=== PATIENT | male | born 1935 | race Caucasian/White ===

== ENCOUNTER 2016-09-24 12:52 | Inpatient (IN) | payer MEDICARE ==
[~2016-09-24] VITALS: Ht 182.9 cm; Wt 64.2 kg
[2016-09-24] MEDS ORDERED: IV NORMAL SALINE 1,000ML 1,000 ML IV SCH (13:25)
[2016-09-24] MEDS ORDERED: ASPIRIN 81 MG TAB.CHEW PO ONE (13:30)
[2016-09-24] MEDS ORDERED: 0.9 % SODIUM CHLORIDE 10 ML DISP.SYRIN. IV PRN (13:30)
--- NOTE | 2016-09-24 13:38 | EKG ---
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
--- NOTE | 2016-09-24 13:38 | PHYS DOC ---
Past History Past Medical History: CAD, Dementia, Depression, High Cholesterol, Heart Disease, Hypertension Past Surgical History: Coronary Bypass Surgery Adult General Chief Complaint Chief Complaint: SHORTNESS OF BREATH HPI HPI Patient is a pleasant 81-year-old male who used to live in [facility] in the area with his and moved to years ago to open, to be closer to a daughter. They came back to the area to spend time with family and on the last several days this patient has gotten increasingly fatigued, short of breath with exertion with extreme tiredness. Patient has a history of heart disease, with prior bypass surgery, prior spontaneous pneumothorax, hypertension, hyperglycemia, diabetes on oral metformin, and dementia. The would been managing his medications took him off his metformin 2 weeks ago because of this unrelenting diarrhea that he began to have. Patient did have some abdominal discomfort with this diarrhea several days ago but now ceased. Patient denies any nausea, vomiting, diarrhea at this point. He denies any fevers, chills, URI symptoms. He does notice extreme fatigue and has noticed decreased exercise tolerance with increased shortness of breath with exertion. He denies nocturia, he denies any trauma recently. The does state that with his weakness is generalized he has fallen a few times in the last several weeks last being several weeks ago. Denies any joint pain, back pain or other focal neurologic deficits. at the bedside denies any arthritic, vision changes or new acute changes in mental status. He became very concerned when he slept 20 hours after returning home from this trip from [place]. During their trip they did stay overnight at a hotel facility at the [address] Dr. Mullen Prior [employer] Dr. Partida prior PCP Review of Systems Review of Systems Constitutional: Denies fever or chills [] Eyes: Denies change in visual acuity, redness, or eye pain [] HENT: Denies nasal congestion or sore throat [] Respiratory: He has had some shortness of breath with exertion without cough. Cardiovascular: No additional information not addressed in HPI [] GI: She last week did complain of some abdominal pain without nausea vomiting but did have some diarrhea this is associated with metformin. : Denies dysuria or hematuria [] Musculoskeletal: Denies back pain or joint pain [] Integument: Denies rash or skin lesions [] Neurologic: Denies headache, she generally feels weak with no sensory changes or noted dysarthria. Endocrine: Denies polyuria or polydipsia [] Current Medications Current Medications Current Medications Medications (Trade) Dose Ordered Sig/Adrianne Start Time Stop Time Status Last Admin Dose Admin Aspirin (Children'S Aspirin) 324 mg 1X ONCE 09/24/16 13:30 09/24/16 13:31 UNV Sodium Chloride (Normal Saline Flush) 10 ml QSHIFT PRN 09/24/16 13:30 UNV Physical Exam Physical Exam Vital signs 179/80 hypertensive blood pressure saturation is 97% on room air normal respiratory rate pulse of 81. Constitutional: Well developed, well nourished, no acute distress, non-toxic appearance. [] HENT: Normocephalic, atraumatic, bilateral external ears normal, mucous membranes are dry no oral exudates, nose normal. [] Eyes: PERRLA, EOMI, conjunctiva normal, no discharge. [] Neck: Normal range of motion, no tenderness, supple, no stridor. No bruits Cardiovascular:Heart rate regular rhythm, no murmur [] Lungs & Thorax: Bilateral breath sounds clear to auscultation [] Abdomen: Bowel sounds normal, soft, no tenderness, no masses, no pulsatile masses. [] Skin: Warm, dry, no erythema, no rash. [] Back: No tenderness, no CVA tenderness. [] Extremities: No tenderness, no cyanosis, no clubbing, ROM intact, no edema. [] Neurologic: Alert and oriented X 3, normal motor function, normal sensory function, no focal deficits noted. [] Psychologic: Affect normal, judgement normal, mood normal. [] Current Patient Data Lab Results Laboratory Tests Test 09/24/16 13:30 09/24/16 14:10 White Blood Count 2.9 x10^3/uL (4.0-11.0) L Red Blood Count 4.43 x10^6/uL (4.30-5.70) Hemoglobin 13.2 g/dL (13.0-17.5) Hematocrit 38.9 % (39.0-53.0) L Mean Corpuscular Volume 88 fL (79-100) Mean Corpuscular Hemoglobin 30 pg (25-35) Mean Corpuscular Hemoglobin Concent 34 g/dL (31-37) Red Cell Distribution Width 15.0 % (11.5-14.5) H Platelet Count 66 x10^3/uL (140-400) L Neutrophils (%) (Auto) 75 % (31-73) H Lymphocytes (%) (Auto) 15 % (24-48) L Monocytes (%) (Auto) 9 % (0-9) Eosinophils (%) (Auto) 1 % (0-3) Basophils (%) (Auto) 0 % (0-3) Neutrophils # (Auto) 2.2 x10^3uL (1.8-7.7) Lymphocytes # (Auto) 0.4 x10^3/uL (1.0-4.8) L Monocytes # (Auto) 0.3 x10^3/uL (0.0-1.1) Eosinophils # (Auto) 0.0 x10^3/uL (0.0-0.7) Basophils # (Auto) 0.0 x10^3/uL (0.0-0.2) Sodium Level 135 mmol/L (136-145) L Potassium Level 4.0 mmol/L (3.5-5.1) Chloride Level 98 mmol/L (98-107) Carbon Dioxide Level 29 mmol/L (21-32) Anion Gap 8 (6-14) Blood Urea Nitrogen 15 mg/dL (8-26) Creatinine 1.3 mg/dL (0.7-1.3) Estimated GFR (Cockcroft-Gault) 53.1 BUN/Creatinine Ratio 12 (6-20) Glucose Level 402 mg/dL (70-99) H Calcium Level 8.8 mg/dL (8.5-10.1) Magnesium Level 1.7 mg/dL (1.8-2.4) L Total Bilirubin 0.7 mg/dL (0.2-1.0) Aspartate Amino Transferase (AST) 18 U/L (15-37) Alanine Aminotransferase (ALT) 22 U/L (16-63) Alkaline Phosphatase 86 U/L (46-116) Creatine Kinase 51 U/L (39-308) Creatine Kinase MB (Mass) 1.6 ng/mL (0.0-3.6) Creatine Kinase MB Relative Index 3.1 % (0-4) Troponin I Quantitative < 0.017 ng/mL (0-0.055) IM-Mkb-K-Type Natriuretic Peptide 825 pg/mL (0-449) H Total Protein 6.9 g/dL (6.4-8.2) Albumin 3.4 g/dL (3.4-5.0) Albumin/Globulin Ratio 1.0 (1.0-1.7) Lipase 206 U/L (73-393) Urine Collection Type Unknown Urine Color Yellow Urine Clarity Clear Urine pH 6.0 Urine Specific [place] 1.015 Urine Protein Trace (NEG-TRACE) Urine Glucose (UA) >=1000 mg/dL (NEG) Urine Ketones (Stick) Trace mg/dL (NEG) Urine Blood Neg (NEG) Urine Nitrite Neg (NEG) Urine Bilirubin Neg (NEG) Urine Urobilinogen Dipstick 0.2 mg/dL (0.2 mg/dL) Urine Leukocyte Esterase Neg (NEG) Urine RBC 1-2 /HPF (0-2) Urine WBC 0 /HPF (0-4) Urine Squamous Epithelial Cells Occ /LPF Urine Bacteria 0 /HPF (0-FEW) Urine Mucus Slight /LPF EKG EKG [] EKG timed 1:17 PM 09/24/[address] Orellana over the EKG normal sinus rhythm with a heart rate of 64 his PMD QRS P waves are 112 [place] interval is 168 QRS is 108 QTC is 452 which is within normal limits patient is a Q-wave in the anterior septal leads V1. Patient has coarse systolic depressions in the lateral leads but nothing greater than 1 mm. Radiology/Procedures Radiology/Procedures [] [place] [address] IMAGING REPORT Signed PATIENT: KATARZYNA JOHNSON ACCOUNT: [id number] : 1935 LOCATION: ER AGE: 81 SEX: M EXAM STATUS: PRE ER ORD. PHYSICIAN: MADELIN ORELLANA MD REASON: sob PROCEDURE: PORTABLE CHEST 1V Portable chest, 09/24/2016: History: Shortness of breath and fatigue Comparison is made to a study from 10/27/2011. There as been a previous median sternotomy. Surgical clips overlie the left upper chest. There is unchanged volume loss on the left. Unchanged left apical pleural-parenchymal opacities are compatible with scarring. The heart size is normal. There is calcific plaquing of the aorta. The pulmonary vascularity is normal. No pulmonary consolidation is seen. There is no evidence of pleural fluid. IMPRESSION: 1. Postsurgical change on the left with volume loss and pleural-parenchymal scarring. 2. No acute pulmonary abnormality is detected. DICTATED AND SIGNED BY: LEANNA PETERSON MD DATE: 09/24/16 0681 CC: KAVITHA OWEN; MADELIN ORELLANA MD ~ [address] [address] IMAGING REPORT Signed PATIENT: KATARZYNA JOHNSON ACCOUNT: [id number] : 1935 LOCATION: ER AGE: 81 SEX: M EXAM STATUS: REG ER ORD. PHYSICIAN: MADELIN ORELLANA MD REASON: sob with travel >8 hrs PROCEDURE: CT ANGIOGRAPHY CHEST CT angiography chest with contrast 09/24/2016 Indication: Shortness of breath with recent travel area of Comparison: CT abdomen/pelvis 08/09/2007 Technique: Multiple axial CT images of the chest were obtained after intravenous administration of 60 mL Omnipaque 300. Coronal and sagittal reformats are provided. Maximum intensity projection images are provided. Findings: Thyroid gland is normal in appearance. There are no enlarged axillary, mediastinal or hilar lymph nodes. Heart size is within normal limits. No pericardial effusion. The thoracic aorta is normal in course and caliber with scattered atherosclerotic calcification. Coronary stents are present. Median sternotomy changes are noted. There is adequate opacification of the pulmonary arterial system. No filling defects to suggest pulmonary artery embolism. There is biapical pleural-parenchymal scarring, left greater than right with volume loss noted in the left lung. Mild centrilobular emphysematous changes are present. Mild bronchial wall thickening compatible with bronchitis. There is a spiculated mass measuring 14 x 11 mm in the lateral basal segment of the right lower lobe. Cholecystectomy changes are identified in the right upper quadrant. Splenic vascular calcification is noted. There is a cystic lesion within the tail of the pancreas measuring 21 x 9 mm. There is mild prominence of the main pancreatic duct measuring 5 mm. No suspicious osseous lesions are identified. Impression: 1. There is a 14 x 11 mm spiculated mass in the lateral basal segment of the right lower lobe suspicious for primary malignancy. Further evaluation with tissue sampling or PET CT may be of benefit. No pathologically enlarged axillary, mediastinal or hilar lymph nodes are identified. 2. Volume loss involving the left upper lobe with left apical pleural-parenchymal scarring. 3. Mild centrilobular emphysema and bronchitis compatible with COPD changes. 4. No acute pulmonary embolism. PQRS Compliance Statement: One or more of the following individualized dose reduction techniques were utilized for this examination: 1. Automated exposure control 2. Adjustment of the mA and/or kV according to patient size 3. Use of iterative reconstruction technique DICTATED AND SIGNED BY: REBECCA BRADY MD DATE: 09/24/16 6260 CC: KAVITHA OWEN; MADELIN ORELLANA MD ~ Course & Med Decision Making Course & Med Decision Making Pertinent Labs and Imaging studies reviewed. (See chart for details) Differential diagnosis: Acute myocardial ischemia, heart failure, cardiac tamponade, bronchospasm, pulmonary embolism, pneumothorax, pulmonary infection i.e. bronchitis or pneumonia, upper airway obstruction, anaphylaxis, aspiration , psychogenic, pulmonary contusion, toxidrome, pneumomediastinum, noncardiogenic pulmonary edema or ARDS, COPD, tuberculosis, cystic fibrosis, asthma, high altitude pulmonary edema, valvular dysfunction, cardiac dysrhythmia , stroke, neuromuscular diseases like myasthenia gravis gravis, ALS, Guillain- Romeo syndrome, metabolic acidosis to include diabetic ketoacidosis, sepsis, and obstructive disorders like massive obesity [] I have reviewed this patient's nursing notes, vital signs and history and physical. Patient noted to be mildly leukopenic with left shift and mild thrombocytopenia. Patient also noted to be mild dehydration with elevated BUN/ creatinine. Patient also noted to have an elevated proBNP but on chest x-ray and exam no clear evidence of congestive heart failure. This patient presents with fatigue and shortness breath with exertion but no chest pain he describes no weight loss, no night sweats. But family is concerned with increasing dementia and this seemed fatigued. Patient tells me that their symptoms given during CC are improved. We reviewed labs and radiology reports with a chest x-ray that shows no occult findings time is now 2 PM. Patient tells me that their symptoms given during CC are improved. We reviewed labs and radiology reports with patient and any family at bedside. Time is now 3 :25 PM patient demonstrates no sign of heart damage at this time, his CT angios the chest demonstrates no pulmonary most him but it does demonstrate a significant mass in the right lower lung that given its size and location is concerning for primary lung cancer. Patient at approximately 3:10 PM had a short run of what we interpreted to look like V. tach unfortunately we are not able to catch it on EKG. Procedures Tech note: call center support representative physician Dr. MOTA Procedures Tech called at of the service 3:24 PM Consult called back at 3:24 PM Discussed the case I presented and they agreed with admission. Time of acceptance 3:24 PM he and I did discuss the involvement of oncology but family would prefer to stay here to have this workup completed and then referred to oncology down at [place]. Servando Disclaimer Dragon Disclaimer This chart was dictated in whole or in part using Voice Recognition software in a busy, high-work load, and often noisy Emergency Department environment. It may contain unintended and wholly unrecognized errors or omissions. Departure Departure: Impression: Primary Impression: Dyspnea on exertion Additional Impressions: Mass of lung Abnormal EKG Fatigue Dehydration Thrombocytopenia Disposition: 09 ADMITTED INPATIENT Admitting Physician: Eddy Mota Condition: GUARDED Referrals: KAVITHA OWEN (PCP) Problem Qualifiers MADELIN ORELLANA MD Sep 24, 2016 13:38
[2016-09-24 13:46] LABS: BASO % 0 % (0-3); EOS % 1 % (0-3); HEMATOCRIT 38.9 % (39.0-53.0); HEMOGLOBIN 13.2 g/dL (13.0-17.5); LYMPH # 0.4 x10^3/uL (1.0-4.8); LYMPH % 15 % (24-48); MEAN CORPUSCULAR HEMOGLOBIN 30 pg (25-35); MEAN CORPUSCULAR HGB CONC 34 g/dL (31-37); MEAN CORPUSCULAR VOLUME 88 fL (79-100); MONO # 0.3 x10^3/uL (0.0-1.1); MONO % 9 % (0-9); NEUT # 2.2 x10^3uL (1.8-7.7); NEUT % 75 % (31-73); PLATELET COUNT 66 x10^3/uL (140-400); RED BLOOD COUNT 4.43 x10^6/uL (4.30-5.70); WHITE BLOOD COUNT 2.9 x10^3/uL (4.0-11.0)
[2016-09-24 14:08] LABS: ALBUMIN 3.4 g/dL (3.4-5.0); CALCIUM 8.8 mg/dL (8.5-10.1); CREATININE 1.3 mg/dL (0.7-1.3); GFR 53.1; MAGNESIUM 1.7 mg/dL (1.8-2.4); TOTAL BILIRUBIN 0.7 mg/dL (0.2-1.0); TOTAL PROTEIN 6.9 g/dL (6.4-8.2)
--- NOTE | 2016-09-24 14:19 | RAD ---
Portable chest, 09/24/2016: History: Shortness of breath and fatigue Comparison is made to a study from 10/27/2011. There as been a previous median sternotomy. Surgical clips overlie the left upper chest. There is unchanged volume loss on the left. Unchanged left apical pleural-parenchymal opacities are compatible with scarring. The heart size is normal. There is calcific plaquing of the aorta. The pulmonary vascularity is normal. No pulmonary consolidation is seen. There is no evidence of pleural fluid. IMPRESSION: 1. Postsurgical change on the left with volume loss and pleural-parenchymal scarring. 2. No acute pulmonary abnormality is detected.
[2016-09-24] MEDS ORDERED: IOHEXOL 300 MG/ML 75 ML VIAL. IV ONE (14:30)
[2016-09-24 14:35] LABS: CLARITY,URINE CLEAR; COLOR,URINE YELLOW
[2016-09-24 14:36] LABS: BACTERIA,URINE 0 /HPF (0-FEW); BILIRUBIN,URINE NEG (NEG); GLUCOSE,URINE >=1000 mg/dL (NEG); NITRITE,URINE NEG (NEG); SQUAMOUS EPITHELIAL CELL,UR OCC /LPF; UROBILINOGEN,URINE 0.2 mg/dL (0.2 mg/dL); WBC,URINE 0 /HPF (0-4)
--- NOTE | 2016-09-24 15:07 | RAD ---
CT angiography chest with contrast 09/24/2016 Indication: Shortness of breath with recent travel area of Comparison: CT abdomen/pelvis 08/09/2007 Technique: Multiple axial CT images of the chest were obtained after intravenous administration of 60 mL Omnipaque 300. Coronal and sagittal reformats are provided. Maximum intensity projection images are provided. Findings: Thyroid gland is normal in appearance. There are no enlarged axillary, mediastinal or hilar lymph nodes. Heart size is within normal limits. No pericardial effusion. The thoracic aorta is normal in course and caliber with scattered atherosclerotic calcification. Coronary stents are present. Median sternotomy changes are noted. There is adequate opacification of the pulmonary arterial system. No filling defects to suggest pulmonary artery embolism. There is biapical pleural-parenchymal scarring, left greater than right with volume loss noted in the left lung. Mild centrilobular emphysematous changes are present. Mild bronchial wall thickening compatible with bronchitis. There is a spiculated mass measuring 14 x 11 mm in the lateral basal segment of the right lower lobe. Cholecystectomy changes are identified in the right upper quadrant. Splenic vascular calcification is noted. There is a cystic lesion within the tail of the pancreas measuring 21 x 9 mm. There is mild prominence of the main pancreatic duct measuring 5 mm. No suspicious osseous lesions are identified. Impression: 1. There is a 14 x 11 mm spiculated mass in the lateral basal segment of the right lower lobe suspicious for primary malignancy. Further evaluation with tissue sampling or PET CT may be of benefit. No pathologically enlarged axillary, mediastinal or hilar lymph nodes are identified. 2. Volume loss involving the left upper lobe with left apical pleural-parenchymal scarring. 3. Mild centrilobular emphysema and bronchitis compatible with COPD changes. 4. No acute pulmonary embolism. PQRS Compliance Statement: One or more of the following individualized dose reduction techniques were utilized for this examination: 1. Automated exposure control 2. Adjustment of the mA and/or kV according to patient size 3. Use of iterative reconstruction technique
[2016-09-24] MEDS ORDERED: ONDANSETRON PF 4 MG/2 ML VIAL. IV PRN ×2 (15:30→18:00)
[2016-09-24] MEDS ORDERED: NITROGLYCERIN SUBLINGUAL 0.4 MG BOTTLE OF 25. SL PRN (15:30)
[2016-09-24] MEDS ORDERED: ACETAMINOPHEN 325 MG TABLET PO PRN ×2 (15:30→18:00)
--- NOTE | 2016-09-24 15:43 | EKG ---
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
[2016-09-24] MEDS: IV NORMAL SALINE 1,000ML 1,000 ML IV SCH (15:45)
[2016-09-24 17:03] VITALS: BP 215/85
[2016-09-24] MEDS ORDERED: CARB-110 PO (17:52)
[2016-09-24] MEDS ORDERED: CLOP75TA57 PO (17:53)
[2016-09-24] MEDS ORDERED: CRESTOR20 MG PO (17:54)
[2016-09-24] MEDS ORDERED: AMLO2.5T PO (17:54)
[2016-09-24] MEDS ORDERED: LISI-334 PO (17:55)
[2016-09-24] MEDS ORDERED: DONE10TA7 PO (17:55)
[2016-09-24] MEDS ORDERED: UBID100C26 PO (17:57)
[2016-09-24] MEDS ORDERED: METO25TA4 PO (17:57)
[2016-09-24] MEDS ORDERED: FERR-26 PO (17:57)
[2016-09-24] MEDS ORDERED: ALPR0.5T PO ×2 (17:57→18:45)
[2016-09-24] MEDS ORDERED: CITA20TA9 PO (17:57)
[2016-09-24] MEDS ORDERED: MAGNESIUM SULFATE 2GM 50 ML IV ONE (18:00)
[2016-09-24 18:06] VITALS: BP 179/78
[2016-09-24] MEDS ORDERED: ALPRAZolam 0.5 MG TABLET PO PRN (18:15)
[2016-09-24] MEDS: LISINOPRIL 20 MG TABLET PO SCH (18:23)
[2016-09-24] MEDS: amLODIPine BESYLATE 2.5 MG TABLET PO SCH (18:24)
[2016-09-24] MEDS ORDERED: DEXTROSE 50% 25 GM / 50ML DISP.SYRIN. IV PRN (18:30)
[2016-09-24] MEDS ORDERED: METF-551 PO (18:31)
[2016-09-24] MEDS: CARBIDOPA/LEVODOPA 25/250MG TABLET PO SCH (18:40)
[2016-09-24] MEDS: METOPROLOL TART IMMED RELEASE 25 MG TABLET PO SCH (20:38)
[2016-09-24] MEDS: ALPRAZolam 0.5 MG TABLET PO SCH (20:38)
[2016-09-24] MEDS: INSULIN ASPART 300 UNITS/3 ML INSULN.PEN SQ SCH (20:44)
[2016-09-24] MEDS ORDERED: ATORVASTATIN CALCIUM 20 MG TABLET PO SCH (21:00)
[2016-09-24] MEDS ORDERED: CITALOPRAM 20 MG TABLET. PO SCH (21:00)
[2016-09-24 22:12] VITALS: BP 163/71
[2016-09-24 23:11] VITALS: BP 146/63
[2016-09-25] MEDS: IV NORMAL SALINE 1,000ML 1,000 ML IV SCH (05:02)
[2016-09-25 05:56] VITALS: BP 168/76
[2016-09-25 06:21] LABS: CALCIUM 8.4 mg/dL (8.5-10.1); CREATININE 1.1 mg/dL (0.7-1.3); GFR 64.4; POTASSIUM 3.7 mmol/L (3.5-5.1)
[2016-09-25 06:54] LABS: BASO % 0 % (0-3); EOS % 1 % (0-3); HEMATOCRIT 37.3 % (39.0-53.0); HEMOGLOBIN 12.7 g/dL (13.0-17.5); LYMPH # 0.5 x10^3/uL (1.0-4.8); LYMPH % 20 % (24-48); MEAN CORPUSCULAR HEMOGLOBIN 30 pg (25-35); MEAN CORPUSCULAR HGB CONC 34 g/dL (31-37); MEAN CORPUSCULAR VOLUME 88 fL (79-100); MONO # 0.3 x10^3/uL (0.0-1.1); MONO % 11 % (0-9); NEUT # 1.6 x10^3uL (1.8-7.7); NEUT % 68 % (31-73); PLATELET COUNT 62 x10^3/uL (140-400); RED BLOOD COUNT 4.25 x10^6/uL (4.30-5.70); RED CELL DISTRIBUTION WIDTH 15.3 % (11.5-14.5); WHITE BLOOD COUNT 2.4 x10^3/uL (4.0-11.0)
[2016-09-25] MEDS: ALPRAZolam 0.5 MG TABLET PO SCH (08:00)
[2016-09-25] MEDS: METOPROLOL TART IMMED RELEASE 25 MG TABLET PO SCH (08:03)
[2016-09-25] MEDS: amLODIPine BESYLATE 2.5 MG TABLET PO SCH (08:03)
[2016-09-25] MEDS: CARBIDOPA/LEVODOPA 25/250MG TABLET PO SCH (08:03)
[2016-09-25] MEDS: LISINOPRIL 20 MG TABLET PO SCH (08:04)
[2016-09-25] MEDS: INSULIN ASPART 300 UNITS/3 ML INSULN.PEN SQ SCH ×2 (08:08→11:54)
[2016-09-25] MEDS ORDERED: FERROUS SULFATE 325 MG TABLET PO SCH (09:00)
[2016-09-25] MEDS ORDERED: NON FORMULARY ITEM (Rosuvastatin Calcium (Crestor) 1 TAB) PO SCH (09:00)
[2016-09-25] MEDS ORDERED: DONEPEZIL HCL 10 MG TABLET PO SCH (09:00)
[2016-09-25] MEDS ORDERED: NON FORMULARY ITEM (Ubidecarenone (Coq-10) 100 MG) PO SCH (09:00)
[2016-09-25 10:54] VITALS: BP 163/72
--- NOTE | 2016-09-25 14:05 | PDOC2 ---
CONSULT Date of Admission DATE: 09/25/16 TIME: 14:04 Reason for Consult: h/o CAD Referring Physician: Dr. Mota Chief Complaint Fatigue Source: Chart review, Patient Problem List Problems Medical Problems: (1) Abnormal EKG Status: Acute (2) Dehydration Status: Acute (3) Dyspnea on exertion Status: Acute (4) Fatigue Status: Acute (5) Mass of lung Status: Acute (6) Thrombocytopenia Status: Acute History of Present Illness 81 y/o male with history of Parkinson's disease, CAD s/p CABG in 2003 and PCI/ thereafter in 2009 previously followed by cardiology and subsequently in [place] after he moved there apparently was in this area with his to take care of her sister when he developed progressive fatigue and dyspnea on exertion. He denied any chest pain as such. He also denied any orthopnea/PND, palpitations or syncope. He was found to have RLL mass suspicious for malignancy. We have been consulted due to his prior history of CAD. Past Medical History CAD s/p CABG and PCI thereafter Parkinson's disease Hypertension Hyperlipidemia COPD Diabetes mellitus type 2 Past Surgical History CABG Cataract surgery Cholecystectomy Family History Lung cancer, breast cancer Social History Quit smoking 1982 and denied any alcohol or drug use Current Medications Current Medications Aspirin (Children'S Aspirin) 324 mg 1X ONCE PO Last administered on 09/24/16 13:43; Start 09/24/16 at 13:30; Stop 09/24/16 at 13:50; Status DC Sodium Chloride 1,000 ml @ 1,000 mls/hr Q1H IV Last administered on 09/24/16 13:43; Start 09/24/16 at 13:25; Stop 09/24/16 at 14:24; Status DC Sodium Chloride (Normal Saline Flush) 10 ml QSHIFT PRN IV AFTER MEDS AND BLOOD DRAWS; Start 09/24/16 at 13:30 Iohexol (Omnipaque 300 Mg/ml) 75 ml 1X ONCE IV Last administered on 09/24/16 14:44; Start 09/24/16 at 14:30; Stop 09/24/16 at 14:31; Status DC Ondansetron HCl (Zofran) 4 mg PRN Q4HRS PRN IV NAUSEA/VOMITING; Start 09/24/16 at 15:30; Stop 09/25/16 at 08:35; Status DC Sodium Chloride 1,000 ml @ 80 mls/hr [id number] IV Last administered on 05:02; Start 09/24/16 at 15:45; Stop 09/25/16 at 15:44 Acetaminophen (Tylenol) 650 mg PRN Q4HRS PRN PO FEVER; Start 09/24/16 at 15:30 ; Stop 09/25/16 at 08:33; Status DC Nitroglycerin (Nitrostat) 0.4 mg PRN Q5MIN PRN SL CHEST PAIN; Start 09/24/16 at 15:30; Stop 09/25/16 at 15:29 Acetaminophen (Tylenol) 650 mg PRN Q6HRS PRN PO Headaches, Temp > 101.5F; Start 09/24/16 at 18:00 Ondansetron HCl (Zofran) 4 mg PRN Q8HRS PRN IV NAUSEA/VOMITING; Start 09/24/16 at 18:00 Magnesium Sulfate 50 ml @ 25 mls/hr 1X ONCE IV Last administered on 09/24/16 18:40; Start 09/24/16 at 18:00; Stop 09/24/16 at 19:59; Status DC Alprazolam (Xanax) 0.5 mg QIDPRN PRN PO ANXIETY / AGITATION; Start 09/24/16 at 18:15 Amlodipine Besylate (Norvasc) 2.5 mg DAILY PO Last administered on 09/25/16 08 :03; Start 09/24/16 at 19:00 Carbidopa/Levodopa (Sinemet 25/250) 1 tab DAILY PO Last administered on 08:03; Start 09/24/16 at 19:00 Citalopram Hydrobromide (CeleXA) 20 mg HS PO Last administered on 09/24/16 20: 38; Start 09/24/16 at 21:00 Clopidogrel Bisulfate (Plavix) 75 mg QODAY PO ; Start 09/26/16 at 09:00 Donepezil HCl (Aricept) 10 mg DAILY PO Last administered on 09/25/16 08:03; Start 09/25/16 at 09:00 Ferrous Sulfate (Feosol) 325 mg DAILY PO Last administered on 09/25/16 08:03; Start 09/25/16 at 09:00 Lisinopril (Prinivil) 20 mg DAILY PO Last administered on 09/25/16 08:04; Start 09/24/16 at 19:00 Metoprolol Tartrate (Lopressor) 12.5 mg BID PO Last administered on 09/25/16 08:03; Start 09/24/16 at 21:00 Non-Formulary Medication 1 tab DAILY PO ; Start 09/25/16 at 09:00; Stop at 09:00; Status DC Non-Formulary Medication 100 mg DAILY PO ; Start 09/25/16 at 09:00; Stop at 09:00; Status DC Insulin Aspart (NovoLOG) 0-7 UNITS QIDACHS SQ Last administered on 09/25/16 11 :54; Start 09/24/16 at 21:00 Dextrose 12.5 gm PRN Q15MIN PRN IV SEE COMMENTS; Start 09/24/16 at 18:30 Atorvastatin Calcium (Lipitor) 80 mg QHS PO Last administered on 09/24/16 20: 38; Start 09/24/16 at 21:00 Alprazolam (Xanax) 0.5 mg BID PO Last administered on 09/25/16 08:00; Start at 21:00 Active Scripts Active Reported Xanax (Alprazolam) 0.5 Mg Tablet 1 Tab PO BID Metformin HCl ER (Metformin HCl) 1,000 Mg [id number] 1,000 Mg PO BIDWMEALS Coq-10 (Ubidecarenone) 100 Mg Capsule 100 Mg PO DAILY Ferrous Sulfate 325 Mg Tablet 1 Tab PO DAILY Metoprolol Tartrate 25 Mg Tablet 0.5 Tab PO BID Xanax (Alprazolam) 0.5 Mg Tablet 1 Tab PO QIDPRN PRN Celexa (Citalopram Hydrobromide) 20 Mg Tablet 1 Tab PO HS Lisinopril 20 Mg Tablet 1 Tab PO DAILY MDD BP Donepezil Hcl 10 Mg Tablet 1 Tab PO DAILY MDD HEART Amlodipine Besylate 2.5 Mg Tablet 1 Tab PO DAILY MDD BP Crestor (Rosuvastatin Calcium) 20 Mg Tablet 1 Tab PO DAILY MDD HEART Plavix (Clopidogrel Bisulfate) 75 Mg Tablet 75 Mg PO QODAY Carbidopa-Levodopa 25-250 Tab (Carbidopa/Levodopa) 1 Each Tablet 1 Tab PO DAILY Allergies: Coded Allergies: morphine (Verified Allergy, Unknown, 09/24/16) General: YES: Fatigue PSYCHOLOGICAL ROS: No: Hallucinations Eyes: No: Loss of vision HEENT: No: Epistaxis ENDOCRINE: No: Palpitations Respiratory: YES: Shortness of breath Cardiovascular: No: Chest Pain Gastrointestinal: No: Vomiting, Diarrhea Neurological: No: Memory Loss, Seizures Skin: No: Rash General: Alert, No acute distress HEENT: Atraumatic, PERRLA Lungs: Clear to auscultation Heart: Regular rate Abdomen: Soft Psych/Mental Status: Mood NL VITALS Vital Signs Date Time Temp Pulse Resp B/P (MAP) Pulse Ox O2 Delivery O2 Flow Rate FiO2 09/25/16 10:54 97.6 75 20 163/72 (102) 99 Room Air Labs Laboratory Tests Test 09/24/16 13:30 09/24/16 14:10 09/24/16 17:09 09/24/16 20:41 White Blood Count 2.9 x10^3/uL (4.0-11.0) Red Blood Count 4.43 x10^6/uL (4.30-5.70) Hemoglobin 13.2 g/dL (13.0-17.5) Hematocrit 38.9 % (39.0-53.0) Mean Corpuscular Volume 88 fL (79-100) Mean Corpuscular Hemoglobin 30 pg (25-35) Mean Corpuscular Hemoglobin Concent 34 g/dL (31-37) Red Cell Distribution Width 15.0 % (11.5-14.5) Platelet Count 66 x10^3/uL (140-400) Neutrophils (%) (Auto) 75 % (31-73) Lymphocytes (%) (Auto) 15 % (24-48) Monocytes (%) (Auto) 9 % (0-9) Eosinophils (%) (Auto) 1 % (0-3) Basophils (%) (Auto) 0 % (0-3) Neutrophils # (Auto) 2.2 x10^3uL (1.8-7.7) Lymphocytes # (Auto) 0.4 x10^3/uL (1.0-4.8) Monocytes # (Auto) 0.3 x10^3/uL (0.0-1.1) Eosinophils # (Auto) 0.0 x10^3/uL (0.0-0.7) Basophils # (Auto) 0.0 x10^3/uL (0.0-0.2) Sodium Level 135 mmol/L (136-145) Potassium Level 4.0 mmol/L (3.5-5.1) Chloride Level 98 mmol/L (98-107) Carbon Dioxide Level 29 mmol/L (21-32) Anion Gap 8 (6-14) Blood Urea Nitrogen 15 mg/dL (8-26) Creatinine 1.3 mg/dL (0.7-1.3) Estimated GFR (Cockcroft-Gault) 53.1 BUN/Creatinine Ratio 12 (6-20) Glucose Level 402 mg/dL (70-99) Calcium Level 8.8 mg/dL (8.5-10.1) Magnesium Level 1.7 mg/dL (1.8-2.4) Total Bilirubin 0.7 mg/dL (0.2-1.0) Aspartate Amino Transf (AST/SGOT) 18 U/L (15-37) Alanine Aminotransferase (ALT/SGPT) 22 U/L (16-63) Alkaline Phosphatase 86 U/L (46-116) Creatine Kinase 51 U/L (39-308) Creatine Kinase MB (Mass) 1.6 ng/mL (0.0-3.6) Creatine Kinase MB Relative Index 3.1 % (0-4) Troponin I Quantitative < 0.017 ng/mL (0-0.055) HI-Nmf-T-Type Natriuretic Peptide 825 pg/mL (0-449) Total Protein 6.9 g/dL (6.4-8.2) Albumin 3.4 g/dL (3.4-5.0) Albumin/Globulin Ratio 1.0 (1.0-1.7) Lipase 206 U/L (73-393) Urine Collection Type Unknown Urine Color Yellow Urine Clarity Clear Urine pH 6.0 Urine Specific Joaquin 1.015 Urine Protein Trace (NEG-TRACE) Urine Glucose (UA) >=1000 mg/dL (NEG) Urine Ketones (Stick) Trace mg/dL (NEG) Urine Blood Neg (NEG) Urine Nitrite Neg (NEG) Urine Bilirubin Neg (NEG) Urine Urobilinogen Dipstick 0.2 mg/dL (0.2 mg/dL) Urine Leukocyte Esterase Neg (NEG) Urine RBC 1-2 /HPF (0-2) Urine WBC 0 /HPF (0-4) Urine Squamous Epithelial Cells Occ /LPF Urine Bacteria 0 /HPF (0-FEW) Urine Mucus Slight /LPF Glucose (Fingerstick) 296 mg/dL (70-99) 334 mg/dL (70-99) Test 09/25/16 05:43 09/25/16 07:21 09/25/16 11:18 White Blood Count 2.4 x10^3/uL (4.0-11.0) Red Blood Count 4.25 x10^6/uL (4.30-5.70) Hemoglobin 12.7 g/dL (13.0-17.5) Hematocrit 37.3 % (39.0-53.0) Mean Corpuscular Volume 88 fL (79-100) Mean Corpuscular Hemoglobin 30 pg (25-35) Mean Corpuscular Hemoglobin Concent 34 g/dL (31-37) Red Cell Distribution Width 15.3 % (11.5-14.5) Platelet Count 62 x10^3/uL (140-400) Neutrophils (%) (Auto) 68 % (31-73) Lymphocytes (%) (Auto) 20 % (24-48) Monocytes (%) (Auto) 11 % (0-9) Eosinophils (%) (Auto) 1 % (0-3) Basophils (%) (Auto) 0 % (0-3) Neutrophils # (Auto) 1.6 x10^3uL (1.8-7.7) Lymphocytes # (Auto) 0.5 x10^3/uL (1.0-4.8) Monocytes # (Auto) 0.3 x10^3/uL (0.0-1.1) Eosinophils # (Auto) 0.0 x10^3/uL (0.0-0.7) Basophils # (Auto) 0.0 x10^3/uL (0.0-0.2) Sodium Level 140 mmol/L (136-145) Potassium Level 3.7 mmol/L (3.5-5.1) Chloride Level 105 mmol/L (98-107) Carbon Dioxide Level 30 mmol/L (21-32) Anion Gap 5 (6-14) Blood Urea Nitrogen 14 mg/dL (8-26) Creatinine 1.1 mg/dL (0.7-1.3) Estimated GFR (Cockcroft-Gault) 64.4 Glucose Level 263 mg/dL (70-99) Calcium Level 8.4 mg/dL (8.5-10.1) Magnesium Level 2.0 mg/dL (1.8-2.4) Glucose (Fingerstick) 256 mg/dL (70-99) 224 mg/dL (70-99) Assessment/Plan 1. CAD s/p CABG and PCI thereafter, clinically stable and chest pain free. Plan outpatient follow up for echo and possible MPI since he did not have any recent cardiac workup 2. Hypertension: controlled 3. Hyperlipidemia: statins 4. Diabetes mellitus - 2 : treat per IM 5. Parkinson's disease: continue current treatment Thank you for your consultation. Problems: CHRISTIAN ROSA MD Sep 25, 2016 14:05
--- NOTE | 2016-09-25 18:10 | HP ---
ADMIT DATE: 09/25/2016 HISTORY OF PRESENT ILLNESS: The patient is an 81-year-old male patient who has been residing with his daughter in [place] after he developed Parkinson disease and he and his were in this area to visit her sister and over the last several days, the patient has been gotten increasingly fatigued, short of breath with exertion, extreme tiredness and had a history of heart disease and prior bypass surgery and spontaneous pneumothorax. Has also hypertension, hyperlipidemia as well as diabetes that his has took him off his metformin about 2 weeks ago because of intractable diarrhea that he began to have. He did calm complain of some abdominal discomfort with diarrhea several days ago that has seized. The patient denied any nausea, vomiting, diarrhea at this time. She denied any fever or chills. He does notice extreme fatigue as noted, decreased exercise tolerance, increased shortness of breath with exertion. He denies any nocturia. Denied any fall or trauma. His stated that he has been extremely weak and the weakness is generalized and has had fallen a few times in the last several weeks, the last being several days ago. He was followed before by Dr. Kincaid at [facility]. He was evaluated in the Emergency Room and the ER physician was concerned about myocardial ischemia. While in the Emergency Room, he had also a CT scan of the chest with PE protocol, which showed that he has mass that was 14 x 11 mm spiculated mass in the lateral basal segment of the right lower lobe suspicious for primary malignancy. I actually offered yesterday to transfer him to [facility] to do the cardiac workup and also consult the coroner forensic technician that I was led to believe that his family wanted him to be admitted to this hospital, so he has had one set of cardiac enzyme, showed that his troponin was less than 0.017. The plan was to admit him to do 2 more sets of cardiac enzyme and to consult the senior systems analyst. PAST MEDICAL HISTORY: Significant for type 2 diabetes mellitus for which he is on metformin that was stopped recently, hypertension, hyperlipidemia, Parkinson's disease, restless leg syndrome and probably COPD. PAST SURGICAL HISTORY: Significant for spontaneous pneumothorax requiring chest tube in 1982. He underwent PTCA and stent deployment twice, one before CABG that was done in 2003 and one after that. He has also bilateral cataract extraction and cholecystectomy. ALLERGIES: He is allergic to MORPHINE. MEDICATIONS: He is currently on following medications: He is currently on alprazolam 0.5 mg 4 times a day; alprazolam 0.5 mg t.i.d. scheduled; amlodipine besylate 2.5 mg once a day; carbidopa/levodopa 25/250 mg once a day; citalopram hydrobromide 20 mg once a day; Plavix 75 mg once every other day; Aricept 10 mg once a day; ferrous sulfate 325 mg once a day; metformin 1000 mg extended release twice a day with meals; metoprolol tartrate for 25 mg tablet, half a tablet twice a day; Crestor 20 mg at bedtime; and CoQ10 100 mg once a day. FAMILY HISTORY: His brother at the age of 60 because of lung cancer. Has a sister who in her 70s because of breast cancer. His father in his 50s due to gastric cancer, and his mother in her because of breast cancer. SOCIAL HISTORY: He is , has 2 daughters. He quit smoking in 1982, does not drink alcohol or use any recreational drugs. REVIEW OF SYSTEMS: The patient has had bilateral cataract extraction; however, denied any blurring of vision, denied any glaucoma or macular degeneration. He has bilateral hearing aid. Denied any nosebleeds, stuffy nose or postnasal drip. Denied any sore throat, sore tongue, toothache, hoarseness of voice or difficulty swallowing. He did complain of weight loss unintentional about 10 to 15. He has no nausea, no vomiting. He did have diarrhea, which was attributed to his metformin. No hematemesis, melena or hematochezia. Denied dysuria, frequency or hematuria. Denied any chest pain, but did complain of shortness of breath. Denied any orthopnea or paroxysmal nocturnal dyspnea. Denied any cough, phlegm or hemoptysis. Denied any chills, rigors or fever. PHYSICAL EXAMINATION: GENERAL: On examining him on admission, he looked somewhat pale, cachectic, but no jaundice, cyanosis, or thyromegaly. No jugular venous distention. No limb edema. VITAL SIGNS: His heart rate was 63, blood pressure was 204/89, temperature was 97.5, respiratory rate was 18 and oxygen saturation was 100% on room air. HEAD, EYES, EARS, NOSE, and THROAT: Showed normocephalic, atraumatic. NECK: Supple. HEART: Showed normal first and second heart sounds with no gallop, rub or murmur. CHEST: Clear to auscultation. No crepitation or rhonchi. ABDOMEN: Scaphoid, soft, nontender. NEUROLOGIC: He was demented, but without any obvious lateralizing sign. All his cranial nerves are intact. EXTREMITIES: He moves extremities without difficulty. LABORATORY DATA: On admission, his lab work showed that his serum sodium 135, potassium 4, chloride 98, bicarbonate 29, anion gap of 8, BUN 15, creatinine 1.3, estimated GFR was 53 mL per minute. Her glucose was 402, calcium was 8.8, magnesium 1.7. Total bilirubin, AST, ALT, alkaline phosphatase were normal. His CK, CK-MB and troponin are all normal. Beta natriuretic peptide was 825. Total protein was 6.9, albumin was 3.4, and lipase 206. His white cell count was 2900, hemoglobin 13.2, hematocrit 38.9, MCV 88 and platelet count 66,000. His urinalysis showed the urine was yellow, clear with a pH of 6, specific gravity 1.015 with large amount of glucose, trace of ketones. The urine was negative for blood, nitrite, bilirubin and leukocyte esterase. There are 1-2 rbc's, 0 wbc's, and no bacteria. He has had a chest x-ray done, which showed that his post-surgical changes in the left with volume loss and pleural parenchymal scarring, no acute pulmonary abnormalities detected. However, his CT scan of the chest with PE protocol showed that the patient has 14 x 11 mm spiculated mass in the lateral basal segment of the right lower lobe suspicious for primary malignancy, further evaluation with scan may be of benefit. No pathologically enlarged axillary, mediastinal, or hilar lymph nodes are identified. Volume loss involving the left upper lobe with left apical pleural parenchymal scarring, mild centrilobular emphysema, bronchitis compatible with COPD changes, no acute pulmonary embolism. We will do 2 more sets of cardiac enzyme, consult the senior systems analyst and we will arrange for him to be seen by Dr. Galeano or Dr. Olmos as an outpatient to elucidate the lung mass further. SHADI GARCÍA MD DR: NICOLASA/krystina JOB#: [id number] / [id number]
--- NOTE | 2016-09-25 22:56 | DS ---
DATE OF DISCHARGE: 09/25/2016 HOSPITAL COURSE: The patient is an 81-year-old male patient, who was admitted to the Emergency Room with a complaint of generalized weakness and fatigue. The patient did not complain of any chest pain. Did complain of abdominal pain as part of his diarrhea that was induced by metformin according to his and has had 2 sets of cardiac enzymes that were negative. While in the Emergency Room, his CT scan of the chest showed that there is a 14 x 11 mm spiculated mass in the lateral basal segment of the right lower lobe, suspicious for primary malignancy, further evaluation by tissue sampling or PET scan may be of benefit. enlarged axillary, mediastinal, hilar lymph nodes identified. Volume loss involving the left upper lobe with left apical pleural parenchymal scarring, has mild centrilobular emphysema, bronchitis, compatible with COPD changes. We had a lengthy discussion with as the patient himself is demented that the workup for the mass can be done as an outpatient. We will arrange for him to be seen as an outpatient by Dr. Olmos or and will decide on further management accordingly. PHYSICAL EXAMINATION: GENERAL: When I examined him this afternoon, he looked well and was clearly in no apparent respiratory distress, pale, but no jaundice or cyanosis. No thyromegaly, jugular venous distension. No limb edema. VITAL SIGNS: Her heart rate was 75, blood pressure 163/72, temperature was 97.6, respiratory rate 20, and oxygen saturation was 99%. HEAD, EYES, EARS, NOSE AND THROAT: Showed normocephalic, atraumatic. NECK: Supple. HEART: Showed normal first and second heart sounds with no gallop, rub or murmur. CHEST: Clear to auscultation. No crepitation or rhonchi. ABDOMEN: Distended, soft, nontender. No guarding or rigidity. No organomegaly. Hernial orifices intact. Bowel sounds normal. NEUROLOGIC: He was demented, but without any obvious lateralizing sign. All his cranial nerves are intact. He moves extremities without difficulty. His intake over the last 24 hours was 3100, output was 800. LABORATORY DATA: Her lab work this morning showed a white cell count of 2400, hemoglobin 12.7, hematocrit 37.3, MCV was 88 and platelet count of 62,000. His serum sodium 140, potassium 3.7, chloride 105, bicarbonate 30, anion gap of 5, BUN is 14, creatinine 1.1, estimated GFR was 64 mL per minute. His glucose was 263, calcium was 8.4, magnesium 2. TSH was 0.54. They stated he has 2 sets of cardiac enzymes that were negative, his troponin was less than 0.017. FINAL DISCHARGE DIAGNOSES: EKG showed a normal sinus rhythm with a heart rate of 64 with no evidence of ST segment elevation or depression, no chest pain and 3 sets of cardiac enzymes were negative, myocardial infarction was ruled out. Other medical problems include hypertension, hyperlipidemia, coronary artery disease, chronic obstructive pulmonary disease and dementia. SHADI GARCÍA MD DR: NICOLASA/krystina JOB#: [id number] / [id number]
--- NOTE | 2016-09-26 00:54 | ACF ---
Admission Criteria Forms COPD Clinical Indications for Admission to Inpatient Care ([facility]/check or initial the applicable condition/criteria) Admission is indicated for ANY ONE of the following (1)(2)(3): [ ]I. Acute exacerbation by high-risk comorbidity(e.g., pneumonia, dysrhythmia, heart failure, pleural effusion, pneumothorax) or severe underlying COPD (eg, baseline FEV1 less than 50% predicted) [X]II. Inpatient admission required[A] rather than observation care (see Chronic Obstructive Pulmonary Disease: Observation Care) because of ANY ONE of the following: [X]a) New or pre-existing signs or symptoms of COPD (eg, dyspnea or Tachypnea at rest or with minimal activity) that persist despite outpatient and observation care treatment [ ]b) New-onset hypoxemia (room air SaO2 less than 90%, PO2 less than 60 mm Hg (8.0 kPa)) that persists despite outpatient and observation care treatment [ ]c) Worsening of pre-existing hypoxemia (eg, new or increased requirement for supplemental oxygen to maintain oxygenation at baseline level) that persists despite outpatient and observation care treatment, with oxygen treatment needs performable only in acute inpatient setting [ ]d) Hypercarbia (PCO2 greater than 40 mm Hg (5.3 kPa))-induced respiratory acidosis (pH less than 7.35) that persists despite outpatient and observation care treatment [ ]e) Supplemental oxygen or respiratory treatments for over 24 hours that are performable only in acute inpatient setting [ ]f) Chest tube placement with active evacuation (e.g., suction, drainage) (6) [ ]g) Other condition, treatment or monitoring requiring inpatient admission [ ]III. Planned invasive surgical or diagnostic procedures requiring acute- care hospitalization [ ]IV. Acute respiratory failure (e.g., uncompensated hypercarbia, severe hypoxemia) [ ]V. Severe comorbid condition (e.g., severe steroid myopathy, acute vertebral fracture) that has acutely worsened pulmonary function [ ]. Altered mental status that is severe or persistent Extended stay beyond goal length of stay may be needed for (29)(30)(31)(32)(33) : [ ]a ) Respiratory Failure. [ ]b) Severe or persisting hypoxemia or hypercarbia [ ]c) Severe or persistent dyspnea [ ]d) Clinically significant Comorbidities (e.g. chronic heart failure, atrial fibrillation with rapid response, pneumonia)(36) [ ]e) Malnutrition (33) The original [facility] content created by [facility] has been revised. The portions of the content which have been revised are identified through the use of italic text, and [facility] has neither reviewed nor approved the modified material. All other unmodified content is copyright [facility]. Please see references footnoted in the original [facility] edition 2015 Admission Criteria Met?: Yes JANE HERNANDEZ Sep 26, 2016 00:54
[2016-09-26] MEDS ORDERED: CLOPIDOGREL BISULFATE 75 MG TABLET PO SCH (09:00)
== END 2016-09-25 15:40 | disposition home or self-care (01) | DRG 204 ==
LOC: ER 12:52 → 1 SOUTH 16:16 → UNDOADMOB 16:16 → ER 16:36
PROVIDERS: ADMIT Internal Medicine; ATTEND Internal Medicine
DX: R91.8 Other nonspecific abnormal finding of lung field (principal); G20 Parkinson's disease; F02.80 Dementia in other diseases classified elsewhere, unspecified severity, without behavioral disturbance, psychotic disturbance, mood disturbance, and anxiety; J44.9 Chronic obstructive pulmonary disease, unspecified; E11.9 Type 2 diabetes mellitus without complications; I10 Essential (primary) hypertension; E78.5 Hyperlipidemia, unspecified; G25.81 Restless legs syndrome; I25.10 Atherosclerotic heart disease of native coronary artery without angina pectoris; Z95.1 Presence of aortocoronary bypass graft; Z95.5 Presence of coronary angioplasty implant and graft; Z90.49 Acquired absence of other specified parts of digestive tract; Z98.41 Cataract extraction status, right eye; Z98.42 Cataract extraction status, left eye; Z88.5 Allergy status to narcotic agent; Z79.84 Long term (current) use of oral hypoglycemic drugs; Z79.899 Other long term (current) drug therapy; Z80.1 Family history of malignant neoplasm of trachea, bronchus and lung; Z80.3 Family history of malignant neoplasm of breast; Z80.0 Family history of malignant neoplasm of digestive organs; Z87.891 Personal history of nicotine dependence
CPT/HCPCS: 36415; 71010; 71275; 80048; 80053; 80061; 81001; 82553; 82947; 83690; 83735; 83880; 84443; 84484; 85025; 93005; 96360; 96361; J3475; Q9967; 99285-25; J7030